=== PATIENT | female | born 1985 | race African-American/Black ===

== ENCOUNTER 2016-08-04 20:47 | Emergency (ER) | payer OTHER ==
[~2016-08-04] VITALS: Ht 170.2 cm; Wt 134.3 kg
[~2016-08-04 20:47] MED LIST: ALBUTEROL2 PUFFS/17 IN; ALEVE220 MG PO; AMOXIL500 M1 PO; AMOXIL500 MG PO; BENZONATATE100 M1 PO; BIAXIN500 MG PO; CIPRO 500MG TA500 MG PO; IBU800 M1 PO; KEFLEX 500MG.500 MG PO; LORTAB 5/500 501 TAB PO; MEDROL 4MG. DOSE4 MG PO; MIRENA52 MG; MIRENA52 MG IU; MOTRIN600 MG PO; NAPROSYN 500MG500 MG PO; NOMEDS; PROVENTIL0.09 MG/AC IH; TESSALON PERLE100 MG PO; TESSALON PERLE200 MG PO; ZITHROMAX Z PA250 MG PO; ZITHROMAX Z-PA250 M1 PO
[2016-08-04 21:13] LABS: URINE BILIRUBIN - DIPSTICK NEGATIVE (NEG); URINE BLOOD NEGATIVE (NEG)
[2016-08-04] MEDS ORDERED: PYRIDIUM200 M2 PO (21:42)
[2016-08-04] MEDS ORDERED: BACTRIM DS 8001 TA1 PO (21:42)
--- NOTE | 2016-08-04 21:44 | [facility] Report ---
History of Present Issue Date/Time Seen by Provider 08/04/162131 Visit Reason Pt arrived:Walked Presenting Problem:LOW BACK BURNING WITH URINATION Location if Accident: Onset of symptoms date/time:08/02/1609/15/699 or onset unknown for: Have you (or family members/close friends) recently traveled outside the [place]? N If Yes, where/when: Have you had exposure to infectious disease within the past month? TB? Other? Specify: c/o right sided low back pain starting Thursday morning w/ intermittent slight burning w/ urination. "I just woke up that way". Initially thought pulled muscle until the dsyuria occurred. Tried azo, pain improved. Restarted this evening, 2 -3 hours ago. Despite increasing water intake significantly over the last 2 days , urine seems dark. No odor, freq, hesitantcy. Some urgency. Denies fever, aches, chills, abdominal pain, vaginal discharge. Last AZO early this morning. Denies N/T, radiating pain. Source patient Exam Limitations obesity ALLERGIES Coded Allergies: No Known Allergies (08/04/16) Home Medications Reported Medications No Home Medications (NO HOME MEDICATIONS) Levonorgestrel (Mirena) 52 MG IU Q 5 YEARS Naproxen Sodium (Aleve) 440 MG PO PRN PRN HEADACHE History Medical History General CAD? No Angina: No CT: No Hypertension? No Hyperlipidemia? No CHF? No COPD? No Asthma? No Anemia? No Hernia? No Thyroid Problems? No Hypothyroidism? No CVA? No Seizures? No Diabetes? No UTI? No Stones? No GB Disease: No Nephritic Syndrome? No Asplenia? No Hepatitis? No Sickle Cell Disease? No Arthritis? No Cataracts? No Glaucoma? No MRSA? No TB? No Cancer? No Immunization HX DT/Tetanus 09/23/09 Surgical Hx Previous Surgery?Y EAR TUBES X 1 IUD INSERTION, MERINA Family History Family HX Diabetes Yes CAD No Hypertension Yes Hyperlipidemia Yes Cancer Yes TB No Social History Smoking Hx Smoker: Never Smoker Tobacco: No Packs/day < 1 Pack Alcohol Alcohol: Yes Review of Systems All Other Systems Reviewed and Negative Constitutional see HPI Gastrointestinal denies abdominal pain, denies diarrhea, denies nausea, denies vomiting Genitourinary see HPI. Musculoskeletal see HPI Psychiatric/Neurological denies headache Physical Exam Vital Signs Vital Signs Date Time Temp Pulse Resp B/P Pulse O2 O2 Flow FiO2 Ox Delivery Rate 08/04 2106 98.6 88 20 170/100 100 08/04 2048 98.6 88 20 170/100 100 General Appearance no apparent distress, obese Respiratory Status No: respiratory distress. Lung Sounds anterior: lungs clear. posterior: lungs clear. bilateral: lungs clear. Cardiovascular regular rate/rhythm, no murmur Gastrointestinal normal bowel sounds, non tender, soft, no suprapubic tenderness , difficult to palpate bladder due to obesity Back no vertebral tenderness, bowel/bladder continent, gait normal, CVA tenderness (R) (mild) Extremities normal range of motion Strength 5 Lower Ext (L), 5 Lower Ext (R) Neurologic alert Skin normal color, warm/dry Medical Decision Making LABS/Meds/Orders Pt receiving controlled substance in ED? No Results/Orders Laboratory Tests 08/04/162110: Urine Color YELLOW, Urine Appearance Clear, Urine pH 5.5, Ur Specific [place] > 1.030 H, Urine Protein NEGATIVE, Urine Ketones NEGATIVE, Urine Blood NEGATIVE, Urine Nitrate POSITIVE H, Urine Bilirubin NEGATIVE, Urine Urobilinogen 1.0, Ur Leukocyte Esterase NEGATIVE, Urine Glucose NEGATIVE Current Medication Orders Sig/Vitaly Start time Last Medication Dose Route Stop Time Status Admin Trimethoprim/ 1 TABLET ONCE ONE 08/04 2144 DCr 08/04 Sulfamethoxazole PO 08/04 Trimethoprim/ 0 .STK-MED ONE 08/04 2137 DC Sulfamethoxazole PO Orders Procedure Date/time Status CULTURE, URINE 08/04 2142 Active [facility] URINE DIPSTICK 08/04 2110 Complete Departure Departure Time of Disposition 2137 Disposition DC Home or Self Care(routine) Clinical Impression Primary Impression: UTI (urinary tract infection) Qualifiers: Urinary tract infection type: site unspecified Hematuria presence: without hematuria Qualified Code: N39.0 - Urinary tract infection, site not specified Condition STABLE Referrals DORIAN EISENBERG (Family) 2-3 days to ensure improving but immediately for new or worsening symptoms. Patient Instructions DI for Urinary Tract Infection (UTI), Phenazopyridine Additional Instructions Increase fluids to flush kidneys. Start antibiotic in morning. First dose given in clinic. AZO ok tonight. start pyridium once able to get it from pharmacy and stop AZO. Remember, will turn urine orange and that urine does stain. Only to take for 48 hours as you shouldn't feel like you need it once the antibiotic starts working. If still feel it is necessary, be sure to see primary care. Sending your urine for culture. Be sure to tell primary care so they can get results in 2-3 days to ensure on appropriate antibiotic. Discharge Counseling Counseled pt/family regarding diagnosis, test results, medications/RX, home care, follow up needs Prescriptions Current Visit Scripts SULFAMETHOXAZOLE W/TRIMETHOPRI (Bactrim Ds Tab) 1 TABLET PO BID #13 TAB BID x 7 days but one dose given in clinic Phenazopyridine HCl (Pyridium) 200 MG PO TIDP PRN pain/burning #5 TAB at 0861
[2016-08-04 21:49] VITALS: BP 170/100
== END 2016-08-04 21:49 | disposition home or self-care (01) ==
LOC: ER 20:47 → UTC 20:57
PROVIDERS: Nurse Practitioner Family
DX: N39.0 Urinary tract infection, site not specified (principal)